=== PATIENT | male | born 1970 | race Caucasian/White ===

== ENCOUNTER 2018-12-20 07:05 | Day surgery (SDC) | payer BC ==
[~2018-12-20 07:05] MED LIST: Buffered Lidocaine 1% SYRIN* 1 ML/SYRINGE INTRADERM ONE; Lactated Ringers 1000 ML Bag* 1,000 ML IV SCH
[2018-12-20] MEDS ORDERED: Clindamycin 900 MG/D5W BAG(*) 900 MG/50 ML BAG IVPB ONE (07:24)
[2018-12-20] MEDS ORDERED: Midazolam* 1 MG/ML 5 ML VIAL (5 MG) ONE (08:12)
[2018-12-20] MEDS ORDERED: Lidocaine 1% INJ* 10 MG/ML 30 ML SDV ONE (08:18)
[2018-12-20] MEDS ORDERED: Bupivacaine 0.5% SDV PF* 30ML VIAL ONE (08:18)
[2018-12-20] MEDS ORDERED: fentaNYL* 50 MCG/ML 2 ML VIAL (100 MCG VIAL) ONE (08:28)
[2018-12-20] MEDS ORDERED: Propofol* 10 MG/ML 20 ML BTL ONE (08:29)
[2018-12-20] MEDS ORDERED: Dexamethasone IV* 4 MG/ML 1 ML (4 MG) ONE (08:39)
[2018-12-20] MEDS ORDERED: Acetaminophen TAB* 325 MG PO PRN (09:08)
[2018-12-20] MEDS ORDERED: Ondansetron INJ* 2 MG/ML VIAL IV PRN (09:08)
[2018-12-20] MEDS ORDERED: oxyCODONE TAB* 5 MG TAB PO PRN (09:08)
[2018-12-20] MEDS ORDERED: Naloxone* 0.4 MG/ML 1 ML VIAL IV PRN (09:08)
[2018-12-20] MEDS ORDERED: DiMENhydriNATE IV* 50 MG/ML VIAL IV PUSH PRN (09:08)
[2018-12-20] MEDS ORDERED: fentaNYL* 50 MCG/ML 2 ML VIAL (100 MCG VIAL) IV PRN (09:08)
[2018-12-20 09:26] VITALS: BP 100/70
--- NOTE | 2018-12-20 12:29 | OP ---
DATE OF OPERATION: 12/20/18 - [facility] DATE OF : 74 SURGEON: Leonardo Kingston DPM. C[employer] G[employer] HELPER: None. PRE-OP DIAGNOSIS: Painful soft tissue mass at the plantar lateral aspect of left forefoot. POST-OP DIAGNOSIS: Painful soft tissue mass at the plantar lateral aspect of left forefoot. OPERATIVE PROCEDURE: Excision of soft tissue mass from the plantar lateral aspect of the left foot. PATHOLOGY: Resected soft tissue mass. HEMOSTASIS: Pneumatic ankle tourniquet. ESTIMATED BLOOD LOSS: Less than 5 cc. INDICATIONS: The patient with a history of rheumatoid arthritis and a history of rheumatoid nodules, and he had similar painful, swollen, and inflamed soft tissue mass/nodule at the plantar lateral aspect of the left foot, plantar to the fifth metatarsal head. He has pain with any standing or walking and opts for surgical excision at this time to attempt to decrease his pain and improve his function as well as for pathological analysis of this mass. DESCRIPTION OF PROCEDURE: The patient was brought to the operating room, placed on the operating table in the supine position. The anesthesia department administered IV sedation and peripheral nerve blocks performed at the left lateral forefoot with a 1:1 mixture of 1% lidocaine plain and 0.5% Marcaine plain. The left foot was then prepped and draped in the usual fashion. The left foot was then exsanguinated with an Esmarch bandage and pneumatic ankle tourniquet was inflated to 250 mmHg about a well-padded left ankle. Attention was directed to the plantar lateral aspect of the left forefoot where a linear incision was made at the lateral aspect of the fifth metatarsophalangeal joint. Blunt dissection was carried plantarly with care being taken to retract neurovascular structures and cauterize superficial bleeders as needed. The soft tissue mass was easily identified. It appeared well encapsulated and it was freed from surrounding soft tissue attachments and send off the field as specimen. The area was inspected with no further portions of the cyst or abnormal tissue noted, and the surgical site was flushed with copious amounts of normal sterile saline. Subcutaneous tissues were reapproximated with 4-0 Vicryl and skin was reapproximated and secured with 4-0 nylon. 12 mg of dexamethasone phosphate was infiltrated into the surgical site and the incision was dressed with Xeroform gauze and a lightly compressive dressing was applied consisting of 4x4 gauze, ABD pad, Frantz, and a Lite Coban wrap. The pneumatic ankle tourniquet was deflated about the left ankle, and a prompt hyperemic response was noted to all five digits in the patient's left foot. Having appeared to have tolerated the procedure and anesthesia well, the patient was transported via cart from the operating room to Recovery in satisfactory condition with capillary refill less than 3 seconds to all digits of the left foot. [id number] #: [id number] ISAI
== END 2018-12-20 09:38 | disposition home or self-care (01) ==
LOC: OREAST 07:05
PROVIDERS: ATTEND Podiatrist Foot Surgery
DX: R22.42 Localized swelling, mass and lump, left lower limb (principal); M06.9 Rheumatoid arthritis, unspecified; F41.8 Other specified anxiety disorders; M79.7 Fibromyalgia; M54.2 Cervicalgia
CPT/HCPCS: 88305; J1100; J2250; J2704; J3010